=== PATIENT | male | born 1975 | race Caucasian/White ===

== ENCOUNTER 2025-04-12 09:37 | Emergency (ER) | payer SELFPAY ==
[~2025-04-12] VITALS: Ht 170.2 cm; Wt 89.0 kg
[2025-04-12 09:39] VITALS: TEMP 36.4; O2SAT 99
[2025-04-12] MEDS ORDERED: RISP2 MT (10:42)
[2025-04-12] MEDS ORDERED: QUET200T MT (10:42)
[2025-04-12 10:58] VITALS: BP 121/76; PULSE 84; RESP 16; O2SAT 100
== END 2025-04-12 11:00 | disposition home or self-care (01) ==
LOC: ER 09:37
DX: F14.10 Cocaine abuse, uncomplicated (principal); F15.10 Other stimulant abuse, uncomplicated; F20.9 Schizophrenia, unspecified; Z79.899 Other long term (current) drug therapy
CPT/HCPCS: 99283